=== PATIENT | female | born 1975 | race Caucasian/White ===

== ENCOUNTER 2018-10-26 18:13 | Emergency (ER) | payer SELFPAY ==
[~2018-10-26] VITALS: Ht 162.6 cm; Wt 64.9 kg
--- NOTE | 2018-10-26 18:38 | PHYS DOC ---
Past History Past Medical History: Other Past Surgical History: Hysterectomy, Tonsillectomy Alcohol Use: None Drug Use: None Adult General Chief Complaint Chief Complaint: HEADACHE HPI HPI Patient is a 43 year old female who presents with complaint of headache. Patient states her symptoms started 3 days ago. Awoke with symptoms early in the morning 3 days ago. Notes that the pain starts along the right side of her head behind her right eye and radiates across the side of her head towards her neck. States that she has both sensitivity to light and sensitivity to sound associated with symptoms. Has history of migraine headaches. States that she last had a migraine headache similar to her current episode about 5 years ago. Has required treatment in the emergency department in the past. States that she received a "cocktail" but was not sure what exact medications she had been given. Patient states that she tried taking Excedrin initially for symptoms wi th no relief. States that she took Lortab earlier today states that this has not helped with her pain. Denies any vision loss, difficulty with speech or swallowing, unilateral weakness or numbness.[] Review of Systems Review of Systems Constitutional: Denies fever or chills [] Eyes: Denies change in visual acuity, redness, or eye pain [] HENT: Denies nasal congestion or sore throat [] Respiratory: Denies cough or shortness of breath [] Cardiovascular: Denies chest pain or edema[] GI: Nausea, denies abdominal pain, vomiting, bloody stools or diarrhea [] : Denies dysuria or hematuria [] Musculoskeletal: Denies back pain or joint pain [] Integument: Denies rash or skin lesions [] Neurologic: Headache, photophobia, denies focal weakness or sensory changes[] All other systems were reviewed and found to be within normal limits, except as documented in this note. Physical Exam Physical Exam Constitutional: Alert, afebrile, appears in moderate discomfort. [] HENT: Normocephalic, atraumatic, bilateral external ears normal, oropharynx moist, no oral exudates, nose normal. [] Eyes: PERRLA, EOMI, photophobia present, conjunctiva normal, no discharge. [] Neck: Normal range of motion, no tenderness, supple, no stridor. [] Cardiovascular:Heart rate regular rhythm, no murmur [] Lungs & Thorax: Bilateral breath sounds clear to auscultation [] Abdomen: Bowel sounds normal, soft, no tenderness, no masses, no pulsatile masses. [] Skin: Warm, dry, no erythema, no rash. [] Back: No tenderness, no CVA tenderness. [] Extremities: No tenderness, no cyanosis, no clubbing, ROM intact, no edema. [] Neurologic: Alert and oriented X 3, normal motor function, normal sensory function, no focal deficits noted. [] Current Patient Data Vital Signs Vital Signs Date Time Temp Pulse Resp B/P (MAP) Pulse Ox O2 Delivery O2 Flow Rate FiO2 10/26/18 18:25 98.1 108 22 98 Room Air Lab Results Laboratory Tests Test 10/26/18 18:38 White Blood Count 7.3 x10^3/uL Red Blood Count 4.87 x10^6/uL Hemoglobin 16.2 g/dL Hematocrit 46.9 % Mean Corpuscular Volume 96 fL Mean Corpuscular Hemoglobin 33 pg Mean Corpuscular Hemoglobin Concent 35 g/dL Red Cell Distribution Width 13.3 % Platelet Count 229 x10^3/uL Neutrophils (%) (Auto) 67 % Lymphocytes (%) (Auto) 25 % Monocytes (%) (Auto) 4 % Eosinophils (%) (Auto) 4 % Basophils (%) (Auto) 1 % Neutrophils # (Auto) 4.9 x10^3uL Lymphocytes # (Auto) 1.8 x10^3/uL Monocytes # (Auto) 0.3 x10^3/uL Eosinophils # (Auto) 0.3 x10^3/uL Basophils # (Auto) 0.0 x10^3/uL Sodium Level 141 mmol/L Potassium Level 3.4 mmol/L Chloride Level 102 mmol/L Carbon Dioxide Level 29 mmol/L Anion Gap 10 Blood Urea Nitrogen 14 mg/dL Creatinine 0.9 mg/dL Estimated GFR (Cockcroft-Gault) 68.7 Glucose Level 130 mg/dL Calcium Level 9.6 mg/dL Magnesium Level 2.0 mg/dL Current Medications Medications (Trade) Dose Ordered Sig/Martinez Route PRN Reason Start Time Stop Time Status Last Admin Dose Admin Sodium Chloride 1,000 ml @ 1,000 mls/hr Q1H IV 10/26/18 19:00 10/26/18 19:59 DC 10/26/18 19:09 Metoclopramide HCl (Reglan) 10 mg 1X ONCE PO 8/21/19 18:45 10/26/18 18:55 DC 10/26/18 19:01 Diphenhydramine HCl (Benadryl) 25 mg 1X ONCE PO 10/26/18 18:45 10/26/18 18:55 DC 10/26/18 19:01 Magnesium Sulfate 100 ml @ 100 mls/hr 1X ONCE IV 10/26/18 18:45 10/26/18 19:44 DC 10/26/18 19:01 Ketorolac Tromethamine (Toradol 30mg Vial) 30 mg 1X ONCE IV 10/26/18 18:45 10/26/18 18:55 DC 10/26/18 19:01 EKG EKG Not performed[] Radiology/Procedures Radiology/Procedures Not performed[] Course & Med Decision Making Course & Med Decision Making Pertinent Labs and Imaging studies reviewed. (See chart for details) Patient was given IV fluids, Reglan, Benadryl, Toradol, and IV magnesium. Patient states that her headache symptoms have improved significantly at this time. Lab work is unremarkable. Patient will be discharged home with prescription for Fioricet. Advised follow-up with primary doctor in 2 days for reevaluation. Advised oral hydration and rest. Recommended return to the emergency department for any worsening symptoms. Patient was understanding and in agreement with treatment plan. Dragon Disclaimer Dragon Disclaimer This electronic medical record was generated, in whole or in part, using a voice recognition dictation system. Departure Departure: Impression: Primary Impression: Migraine headache Disposition: HOME, SELF-CARE Condition: IMPROVED Referrals: PCP,IRENE (PCP) Patient Instructions: Migraine Headache Additional Instructions: Follow-up with your primary doctor in 2 days for reevaluation. Return to the emergency department for any worsening symptoms. Scripts Butalb/Acetaminophen/Caffeine ([id number] [id number]) 1 Each Tablet 1 EACH PO Q4-6HRS PRN for HEADACHE, #20 TAB Prov: NAHID MAZARIEGOS MD 10/26/18 Problem Qualifiers Primary Impression: Migraine headache Migraine type: unspecified Status migrainosus presence: with status migrainosus Intractability: not intractable Qualified Codes: G43.901 - Migraine, unspecified, not intractable, with status migrainosus NAHID MAZARIEGOS MD Oct 26, 2018 18:37
[2018-10-26] MEDS ORDERED: METOCLOPRAMIDE 10 MG TABLET PO ONE (18:45)
[2018-10-26] MEDS ORDERED: MAGNESIUM SULFATE 1GM 100 ML IV ONE (18:45)
[2018-10-26] MEDS ORDERED: diphenhydrAMINE HCL 25 MG CAPSULE PO ONE (18:45)
[2018-10-26] MEDS ORDERED: KETOROLAC 30 MG/ML VIAL. IV ONE (18:45)
[2018-10-26] MEDS ORDERED: IV NORMAL SALINE 1,000ML 1,000 ML IV SCH (19:00)
[2018-10-26 19:05] LABS: CALCIUM 9.6 mg/dL (8.5-10.1); CREATININE 0.9 mg/dL (0.6-1.0); GFR 68.7; POTASSIUM 3.4 mmol/L (3.5-5.1)
[2018-10-26 19:30] LABS: BASO % 1 % (0-3); EOS # 0.3 x10^3/uL (0.0-0.7); EOS % 4 % (0-3); HEMATOCRIT 46.9 % (36.0-47.0); HEMOGLOBIN 16.2 g/dL (12.0-15.5); LYMPH # 1.8 x10^3/uL (1.0-4.8); LYMPH % 25 % (24-48); MEAN CORPUSCULAR HEMOGLOBIN 33 pg (25-35); MEAN CORPUSCULAR HGB CONC 35 g/dL (31-37); MEAN CORPUSCULAR VOLUME 96 fL (79-100); MONO # 0.3 x10^3/uL (0.0-1.1); MONO % 4 % (0-9); NEUT # 4.9 x10^3uL (1.8-7.7); NEUT % 67 % (31-73); PLATELET COUNT 229 x10^3/uL (140-400); RED BLOOD COUNT 4.87 x10^6/uL (3.50-5.40); RED CELL DISTRIBUTION WIDTH 13.3 % (11.5-14.5); WHITE BLOOD COUNT 7.3 x10^3/uL (4.0-11.0)
[2018-10-26] MEDS ORDERED: BUTA1TAB23 PO (20:57)
[2018-10-26 21:04] VITALS: BP 105/73
== END 2018-10-26 21:12 | disposition home or self-care (01) ==
LOC: ER 18:13
DX: G43.901 Migraine, unspecified, not intractable, with status migrainosus (principal)
CPT/HCPCS: 36415; 80048; 83735; 85025; 96365; 96375; 99284; J1885; J3475; J8597; Q0163; 99285-25; J7030